=== PATIENT | female | born 1945 | race Caucasian/White ===

== ENCOUNTER 2021-05-01 08:43 | Outpatient (CLI) | payer MEDICARE, OTHER | END 2021-05-01 08:44 | disposition home or self-care (01) | LOC: CSHWCC 08:43 | PROVIDERS: ATTEND Nurse Practitioner Family | DX: I87.332 Chronic venous hypertension (idiopathic) with ulcer and inflammation of left lower extremity (principal); L97.229 Non-pressure chronic ulcer of left calf with unspecified severity; R60.0 Localized edema; G47.33 Obstructive sleep apnea (adult) (pediatric); I48.91 Unspecified atrial fibrillation; I87.2 Venous insufficiency (chronic) (peripheral); W22.8XXD Striking against or struck by other objects, subsequent encounter ==

== ENCOUNTER 2021-05-08 10:59 | Outpatient (CLI) | payer MEDICARE, OTHER | END 2021-05-08 11:00 | disposition home or self-care (01) | LOC: CSHWCC 10:59 | PROVIDERS: ATTEND Nurse Practitioner Family | DX: I87.332 Chronic venous hypertension (idiopathic) with ulcer and inflammation of left lower extremity (principal); I87.2 Venous insufficiency (chronic) (peripheral); L97.229 Non-pressure chronic ulcer of left calf with unspecified severity; R60.0 Localized edema; I48.91 Unspecified atrial fibrillation; G47.33 Obstructive sleep apnea (adult) (pediatric); W22.8XXD Striking against or struck by other objects, subsequent encounter | CPT/HCPCS: 11042; 97607; 99213; G0463 ==

== ENCOUNTER 2021-05-15 15:09 | Outpatient (CLI) | payer MEDICARE, OTHER | END 2021-05-15 15:10 | disposition home or self-care (01) | LOC: CSHWCC 15:09 | PROVIDERS: ATTEND Nurse Practitioner Family | DX: I87.332 Chronic venous hypertension (idiopathic) with ulcer and inflammation of left lower extremity (principal); L97.229 Non-pressure chronic ulcer of left calf with unspecified severity; R60.0 Localized edema; G47.33 Obstructive sleep apnea (adult) (pediatric); I10 Essential (primary) hypertension; I48.91 Unspecified atrial fibrillation; I87.2 Venous insufficiency (chronic) (peripheral); W22.8XXD Striking against or struck by other objects, subsequent encounter | CPT/HCPCS: 97139; G0463; 99213 ==

== ENCOUNTER 2021-05-29 09:34 | Outpatient (CLI) | payer MEDICARE, OTHER | END 2021-05-29 09:35 | disposition home or self-care (01) | LOC: CSHWCC 09:34 | PROVIDERS: ATTEND Nurse Practitioner Family | DX: I87.332 Chronic venous hypertension (idiopathic) with ulcer and inflammation of left lower extremity (principal); I87.2 Venous insufficiency (chronic) (peripheral); L97.229 Non-pressure chronic ulcer of left calf with unspecified severity; G47.33 Obstructive sleep apnea (adult) (pediatric); I10 Essential (primary) hypertension; I48.91 Unspecified atrial fibrillation; R60.0 Localized edema; W22.8XXD Striking against or struck by other objects, subsequent encounter ==